=== PATIENT | male | born 1990 | race Caucasian/White ===

== ENCOUNTER 2024-04-08 10:28 | Emergency (ER) | payer OTHER, SELFPAY ==
--- NOTE | ~2024-04-08 | US_ITS ---
US right upper quadrant INDICATION: Right upper quadrant pain PROCEDURE: Realtime right upper abdominal ultrasound. COMPARISON: No prior studies for comparison. FINDINGS: The pancreas is normal without focal mass or pancreatic ductal dilation. Liver echotexture is normal without focal mass or intrahepatic biliary dilatation. There is normal directional flow i n the portal vein. Gallbladder contains echogenic debris, consistent with sludge. There are also gallstones at the gallb ladder neck. Common bile duct measures 7 mm. No sonographic Jacobson's sign. IMPRESSION: 1: Cholelithiasis with gallbladder sludge and mildly dilated common bile duct measuring 7 mm. Conside r cholecystitis in the appropriate clinical setting. Reviewed, dictated and finalized at location B. IMPRESSION: 1: Cholelithiasis with gallbladder sludge and mildly dilated common bile duct m easuring 7 mm. Consider cholecystitis in the appropriate clinical setting.
[2024-04-08 10:31] VITALS: BP 153/100; PULSE 73; RESP 18; TEMP 37.1; O2SAT 100
[2024-04-08 10:52] LABS: Basophils Absolute Auto 0.1 K/mm3 (0.0-0.1); Eosinophils Absolute Auto 0.4 K/mm3 (0-0.3); Eosinophils Percent Auto 4.4 % (0-4.4); Hematocrit 51.9 % (42.0-52.0); Immature Granulocyte Absolute 0.02 K/mm3 (0.00-0.031); Immature Granulocyte Percent A 0.2 % (0-0.5); Lymphocytes Absolute Auto 2.86 K/mm3 (0.9-3.2); Lymphocytes Percent Auto 31.7 % (18.3-44.2); Mean Corpuscular HGB Conc 32.8 g/dl (32-36); Mean Corpuscular Hemoglobin 26.3 pg (26-34); Mean Corpuscular Volume 80.3 fl (80-100); Mean Platelet Volume 9.4 fl (7.4-10.4); Monocytes Absolute Auto 0.8 K/mm3 (0.1-0.6); Monocytes Percent Auto 8.4 % (2.6-8.5); Neutrophils Absolute Auto 4.9 K/mm3 (1.3-6.7); Neutrophils Percent Auto 54.3 % (45.5-73.1); Platelet Count Result 300 k/mm3 (150-375); Red Blood Count 6.46 M/mm3 (4.6-6.20); Red Cell Distribution Width 18.2 % (11.5-14.5)
[2024-04-08 10:54] LABS: Appearance Urine Clear (Clear); Bilirubin Urine Negative (Negative); Blood Urine Negative (Negative); Color Urine Yellow (Yellow); Glucose Urine UA Negative (Negative); Ketones Urine Negative (Negative); Leukocyte Esterase Ur Negative LEU/UL (Negative); Nitrate Urine Negative (Negative); Protein Urine Negative (Negative); Specific Grav Ur 1.025 (1.001-1.035); Urobilinogen Urine 0.2 mg/dL (<2.0); pH Urine 5.5 (5.0-9.0)
[2024-04-08 11:02] LABS: Alanine Aminotransferase 25 U/L (6-50); Albumin Level 4.3 g/dL (3.5-5.1); Alkaline Phosphatase 44 U/L (38-126); Anion Gap 9 mmol/L (4-12); Aspartate Amino Transferase 26 U/L (17-59); Bilirubin,Total 0.7 mg/dL (0.2-1.3); Blood Urea Nitrogen 21 mg/dL (9-20); Calcium 9.2 mg/dL (8.4-10.2); Carbon Dioxide 24 mmol/L (22-30); Chloride 108 mmol/L (98-107); Estimated CRCL calculation 85 ml/min; Estimated Glomerular Filt Rate 55; Glucose 87 mg/dL (65-110); Lipase 187 U/L (23-300); Potassium 3.8 mmol/L (3.4-5.0); Sodium 141 mmol/L (137-145)
[2024-04-08 11:03] LABS: Add Urine Microscopic? NO
--- NOTE | 2024-04-08 12:23 | ED.ABDPAIN ---
HPI - Abdominal Pain General Chief Complaint: Abdominal Pain Stated Complaint: gallbladder issues Time Seen by Provider: 04/08/24 10:32 History of Present Illness HPI narrative: Patient is a 33-year-old male who presents ER with right upper quadrant abdominal pain. Intermittent over the last couple weeks. Worse at night. Feels bloated. Has mild acid reflux symptoms but takes omeprazole and this feels different. Denies fevers or chills or sweats. Unsure of any aggravating factors. Concerned he may have gallstones. Related Data Home Medications Medication Instructions Recorded Confirmed cetirizine 10 mg tablet mg 04/08/24 divalproex 500 mg tablet,delayed mg PO 04/08/24 release fluoxetine 20 mg capsule mg 04/08/24 levothyroxine 50 mcg tablet mcg 04/08/24 omeprazole 20 mg capsule,delayed mg 04/08/24 release quetiapine 100 mg tablet mg 04/08/24 Allergies Allergy/AdvReac Type Severity Reaction Status Date / Time No Known Allergies Allergy Verified 04/08/24 10:40 Review of Systems Review of Systems: All systems reviewed & are unremarkable except as noted in HPI and below Constitutional: Constitutional: Reports no additional constitutional complaints Cardiovascular: Cardiovascular: Reports no additional cardiovascular complaints Respiratory: Respiratory: Reports no additional respiratory complaints Gastrointestinal: Gastrointestinal: Reports abdominal pain, Reports bloating, Denies diarrhea, Denies nausea and Denies vomiting Musculoskeletal: Musculoskeletal: Reports no additional musculoskeletal complaints PMFSH Past Medical History Medical History (Updated 04/08/24 @ 13:17 by Terry Naranjo MD) Depression Surgical History Surgical History (Updated 04/08/24 @ 12:24 by Terry Naranjo MD) History of tracheostomy Exam Narrative: GENERAL: Well-appearing, well-nourished, and in no acute distress. HEAD: Normocephalic, atraumatic. ENT: Mucous membranes moist. CHEST: Clear to auscultation. No respiratory distress. HEART: Regular rate and rhythm. Normal peripheral pulses. ABDOMEN: Soft, nontender, nondistended. EXTREMITIES: Normal range of motion. No edema. SKIN: Warm, dry, no rash. NEURO: Alert and oriented x3. PSYCH: Normal mood and affect. Course Course Emergency Course: Patient informed of results. Discussed case with Dr. Carlisle. Discharge home with supportive care and low-fat diet. Needs follow-up to have his gallbladder removed. Vital Signs Vital signs: Vital Signs Temperature 98.8 F 04/08/24 10:31 Pulse Rate 73 04/08/24 10:31 Respiratory Rate 18 04/08/24 10:31 Blood Pressure 153/100 H 04/08/24 10:31 Pulse Oximetry 100 04/08/24 10:31 Oxygen Delivery Room Air 04/08/24 10:31 Temperature 98.8 F 04/08/24 10:31 Pulse Rate 66 04/08/24 12:39 Respiratory Rate 16 04/08/24 12:39 Blood Pressure 139/86 04/08/24 12:39 Pulse Oximetry 97 04/08/24 12:39 Oxygen Delivery Room Air 04/08/24 10:31 MDM - Abdominal Pain Lab Data 04/08/24 10:44 04/08/24 10:44 Labs: Lab Results 04/08/24 Range/Units 10:44 WBC 9.0 (4.5-10.0) K/mm3 RBC 6.46 H (4.6-6.20) M/mm3 Hgb 17.0 (14.0-18.0) g/dL Hct 51.9 (42.0-52.0) % MCV 80.3 (80-100) fl MCH 26.3 (26-34) pg MCHC 32.8 (32-36) g/dl RDW 18.2 H (11.5-14.5) % Plt Count 300 (150-375) k/mm3 MPV 9.4 (7.4-10.4) fl Immature Gran % (Auto) 0.2 (0-0.5) % Neut % (Auto) 54.3 (45.5-73.1) % Lymph % (Auto) 31.7 (18.3-44.2) % Pitkin % (Auto) 8.4 (2.6-8.5) % Eos % (Auto) 4.4 (0-4.4) % Baso % (Auto) 1.0 (0.2-1.2) % Lymph # (Auto) 2.86 (0.9-3.2) K/mm3 Pitkin # (Auto) 0.8 H (0.1-0.6) K/mm3 Eos # (Auto) 0.4 H (0-0.3) K/mm3 Baso # (Auto) 0.1 (0.0-0.1) K/mm3 Abs Immat Gran (auto) 0.02 (0.00-0.031) K/mm3 Absolute Neuts (auto) 4.9 (1.3-6.7) K/mm3 Absolute Nucleated RBC 0.000 (0.0-0.012) K/mm3 Nucleated RBC %
[2024-04-08 12:39] VITALS: BP 139/86; PULSE 66; RESP 16; O2SAT 97
== END 2024-04-08 13:28 | disposition home or self-care (01) ==
PROVIDERS: Emergency Provider Emergency Medicine; PCP Nurse Practitioner
DX: K80.70 Calculus of gallbladder and bile duct without cholecystitis without obstruction (principal); F32.A Depression, unspecified; Z79.899 Other long term (current) drug therapy
CPT/HCPCS: 36415; 76705; 80053; 81003; 83690; 85025; 99284

== ENCOUNTER 2024-05-11 06:39 | Emergency (ER) | payer OTHER, SELFPAY ==
[2024-05-11 06:47] VITALS: BP 192/106; PULSE 68; RESP 19; TEMP 36.5; O2SAT 99
[2024-05-11 07:00] LABS: Basophils Absolute Auto 0.1 K/mm3 (0.0-0.1); Eosinophils Absolute Auto 0.3 K/mm3 (0-0.3); Eosinophils Percent Auto 3.6 % (0-4.4); Hematocrit 51.7 % (42.0-52.0); Hemoglobin 16.8 g/dL (14.0-18.0); Immature Granulocyte Absolute 0.04 K/mm3 (0.00-0.031); Immature Granulocyte Percent A 0.4 % (0-0.5); Lymphocytes Absolute Auto 3.32 K/mm3 (0.9-3.2); Mean Corpuscular HGB Conc 32.5 g/dl (32-36); Mean Platelet Volume 9.3 fl (7.4-10.4); Monocytes Absolute Auto 0.9 K/mm3 (0.1-0.6); Monocytes Percent Auto 9.2 % (2.6-8.5); Neutrophils Absolute Auto 4.6 K/mm3 (1.3-6.7); Neutrophils Percent Auto 49.8 % (45.5-73.1); Platelet Count Result 306 k/mm3 (150-375); Red Blood Count 6.23 M/mm3 (4.6-6.20); Red Cell Distribution Width 16.3 % (11.5-14.5); White Blood Count 9.2 K/mm3 (4.5-10.0)
[2024-05-11 07:01] LABS: Appearance Urine Clear (Clear); Bilirubin Urine Negative (Negative); Blood Urine Negative (Negative); Color Urine Yellow (Yellow); Glucose Urine UA Negative (Negative); Ketones Urine Trace mg/dL (Negative); Leukocyte Esterase Ur Negative LEU/UL (Negative); Nitrate Urine Negative (Negative); Protein Urine Negative (Negative); Specific Grav Ur 1.025 (1.001-1.035); Urobilinogen Urine 0.2 mg/dL (<2.0); pH Urine 5.5 (5.0-9.0)
[2024-05-11 07:02] LABS: Add Urine Microscopic? NO
--- NOTE | 2024-05-11 07:09 | ED.ABDPAIN ---
HPI - Abdominal Pain General Chief Complaint: Abdominal Pain Stated Complaint: RUQ pain, n/v Time Seen by Provider: 05/11/24 07:01 History of Present Illness HPI narrative: Patient is a 33-year-old male who presents ER with right upper quadrant pain. Consistent with his known gallbladder stones/ sludge. Mild nausea vomiting. No adherence to a low-fat diet. He had followed up with General surgery who was unsure whether his symptoms would return to the opted to avoid surgery. Unfortunately over last 2 days symptoms have recurred. Worse with eating. No fevers or chills or sweats. Related Data Home Medications Medication Instructions Recorded Confirmed cetirizine 10 mg tablet mg 04/08/24 04/22/24 divalproex 500 mg tablet,delayed mg PO 04/08/24 04/22/24 release fluoxetine 20 mg capsule mg 04/08/24 04/22/24 levothyroxine 50 mcg tablet mcg 04/08/24 04/22/24 omeprazole 20 mg capsule,delayed mg 04/08/24 04/22/24 release Allergies Allergy/AdvReac Type Severity Reaction Status Date / Time No Known Allergies Allergy Verified 05/11/24 06:51 Review of Systems Constitutional: Constitutional: Reports no additional constitutional complaints ENT: Reports system reviewed and no additional complaints, except as documented Cardiovascular: Cardiovascular: Reports no additional cardiovascular complaints Respiratory: Respiratory: Reports no additional respiratory complaints Gastrointestinal: Gastrointestinal: Reports abdominal pain, Denies diarrhea, Denies nausea and Denies vomiting PMFSH Past Medical History Medical History (Updated 05/11/24 @ 08:27 by Terry Naranjo MD) Depression History of blood clots Surgical History Surgical History History of tracheostomy Social History Social History (Updated 04/22/24 @ 14:22 by Erika Bradley CMA) Smoking status: Never smoker Alcohol intake: current Do You Feel Safe in your Home?: Yes Lack of Transportation: No Lack of Food: Never True Current Housing: I Have Housing Concerned About Future Housing: No Difficulty Paying Gas/Electric Bills: No Difficulty Paying for Meds: No Currently Unemployed: YES Education: High School Diploma/GED Difficulty w/ Childcare or Family Care: No Exam Narrative: GENERAL: Well-appearing, well-nourished, and in no acute distress. HEAD: Normocephalic, atraumatic. ENT: Mucous membranes moist. CHEST: Clear to auscultation. No respiratory distress. HEART: Regular rate and rhythm. Normal peripheral pulses. ABDOMEN: Soft, nontender, nondistended. EXTREMITIES: Normal range of motion. No edema. SKIN: Warm, dry, no rash. NEURO: Alert and oriented x3. PSYCH: Normal mood and affect. Course Course Emergency Course: No pain at this time. Labs unremarkable. Will give supportive care medications for home, recommend low-fat diet, wound follow back up with surgery to have his gallbladder removed. Vital Signs Vital signs: Vital Signs Temperature 97.7 F 05/11/24 06:47 Pulse Rate 68 05/11/24 06:47 Respiratory Rate 19 05/11/24 06:47 Blood Pressure 192/106 H 05/11/24 06:47 Pulse Oximetry 99 05/11/24 06:47 Oxygen Delivery Room Air 05/11/24 06:47 Temperature 97.7 F 05/11/24 06:47 Pulse Rate 66 05/11/24 07:27 Respiratory Rate 18 05/11/24 07:27 Blood Pressure 155/91 H 05/11/24 07:27 Pulse Oximetry 97 05/11/24 07:27 Oxygen Delivery Room Air 05/11/24 06:47 MDM - Abdominal Pain Lab Data 05/11/24 06:52 05/11/24 06:52 Labs: Lab Results 05/11/24 05/11/24 Range/Units 06:52 06:53 WBC 9.2 (4.5-10.0) K/mm3 RBC 6.23 H (4.6-6.20) M/mm3 Hgb 16.8 (14.0-18.0) g/dL Hct 51.7 (42.0-52.0) % MCV 83.0 (80-100) fl MCH 27.0 (26-34) pg MCHC 32.5 (32-36) g/dl RDW 16.3 H (11.5-14.5) % Plt Count 306 (150-375) k/mm3 MPV 9.3 (7.4-10.4) fl Immatu
[2024-05-11 07:13] LABS: Alanine Aminotransferase 29 U/L (6-50); Albumin Level 4.3 g/dL (3.5-5.1); Alkaline Phosphatase 43 U/L (38-126); Anion Gap 9 mmol/L (4-12); Aspartate Amino Transferase 24 U/L (17-59); Bilirubin,Total 0.5 mg/dL (0.2-1.3); Blood Urea Nitrogen 20 mg/dL (9-20); Calcium 9.2 mg/dL (8.4-10.2); Carbon Dioxide 26 mmol/L (22-30); Chloride 103 mmol/L (98-107); Estimated CRCL calculation 71 ml/min; Estimated Glomerular Filt Rate 44; Glucose 99 mg/dL (65-110); Lipase 111 U/L (23-300); Potassium 4.2 mmol/L (3.4-5.0); Sodium 138 mmol/L (137-145)
[2024-05-11] MEDS: SODIUM CHLORIDE 0.9% IV 1,000 ML 999 ML IV CONT (07:24)
[2024-05-11 07:27] VITALS: BP 155/91; PULSE 66; RESP 18; O2SAT 97
[2024-05-11 08:35] VITALS: BP 142/93; PULSE 79; RESP 16; O2SAT 96
== END 2024-05-11 08:37 | disposition home or self-care (01) ==
PROVIDERS: Emergency Medicine; Emergency Provider Emergency Medicine; PCP Nurse Practitioner
DX: K80.50 Calculus of bile duct without cholangitis or cholecystitis without obstruction (principal); F32.A Depression, unspecified; Z79.899 Other long term (current) drug therapy
CPT/HCPCS: 36415; 80053; 81003; 83690; 85025; 96360; 99283; J7030

== ENCOUNTER 2024-05-21 12:09 | Outpatient (CLI) | payer OTHER, SELFPAY ==
[2024-05-21 12:38] LABS: Amylase 52 U/L (30-110)
== END 2024-05-21 12:10 | disposition home or self-care (01) ==
LOC: ANHLAB 12:10
PROVIDERS: PCP Nurse Practitioner; Referring Provider Anesthesiology; Visit Provider Surgery
DX: K80.20 Calculus of gallbladder without cholecystitis without obstruction (principal); Z01.818 Encounter for other preprocedural examination
CPT/HCPCS: 36415; 82150; 86850; 86900; 86901

== ENCOUNTER 2024-05-22 00:23 | Day surgery (SDC) | payer OTHER, SELFPAY ==
[2024-05-21 11:00] VITALS: BMI 34.6
--- NOTE | 2024-05-21 11:01 | PC.NURSE ---
Report to the Outpatient Waiting Room, entrance under the green pavilion located off [facility], at time _0600_ on date _72-28-1993_. Planned Procedure Time: _0730_. Time changes happen often and if your time is changed the preop area will call you the afternoon before. - You and your visitor will be asked to self-screen and do not enter if you have any COVID symptoms. - A mask is optional within the hospital at this time. Patients may have clear liquids (water, carbonated beverages, clear teas, apple juice) until 3 hours prior to surgery with a maximum of 20 ounces. - No food from midnight until time of surgery Take the following medications with a SIP of water the morning of surgery: ___Divalproex DO NOT STOP ANY OF YOUR OTHER PRESCRIPTION MEDICATIONS PRIOR TO SURGERY ?EXCEPT THE FOLLOWING Medications to discontinue per physician ____None Date to take last dose Please no make-up, nail upper sorbian, hairspray, perfume, deodorant, or body powder the day of surgery. No jewelry (including any body piercings) or valuables the day of surgery, leave them at home. Please take a shower or bath the night before, or the morning of, surgery with an antibacterial soap. Wear comfortable, loose fitting clothing. - Jewelry must be removed prior to entering the operating room. Rings and piercings that are not removed may be cut off. - The hospital will not accept responsibility for valuables. - Please leave all valuables, including medications, at home the day of surgery. If you are going home after surgery, a licensed speedboat driver must drive you home. - NO public transportation without another adult if you receive anesthesia. - We recommend that an adult stay with you for 24 hours following discharge. - We also recommend that you do not drive, make important decision, drink alcoholic beverages, or take any drugs that were not prescribed by your health care provider for at least 24 hours after your discharge time. Follow any additional instructions given to you from your surgeon. If you or anyone in your household have experienced Covid symptoms in the past week, please notify your surgeon or the nurse liaison at the phone number below for possible testing. Telephone instructions given to __Eric__and asked if any additional questions and then verbalized understanding. Patient advised to call surgeon office or pre surgery nurse liaison [phone] if any additional questions.
[2024-05-22] VITALS (9 sets, daily range): BP systolic 95–139; BP diastolic 55–100; PULSE 69–89; RESP 12–18; TEMP 36.1–36.6; O2SAT 98–100
--- NOTE | 2024-05-22 07:09 | WPDANESEPPF ---
Anes - Initial Pre Proc Eval Procedure: Operation Date: 05/22/24 07:30 Proposed Procedures p Robotic Laparoscopic Cholecystectomy, Posible Open - Tyron Heredia MD Date/Time: 05/22/24 07:09 Surgeon: Tyron Heredia MD Pre Op Diagnosis: biliary colic Patient Data Age: 33 Gender: M Height: 1.83 m Weight: 115.9 kg Allergies Allergy/AdvReac Type Severity Reaction Status Date / Time No Known Allergies Allergy Verified 05/22/24 06:50 Home Medications Medication Instructions Recorded Confirmed Type cetirizine 10 mg tablet 10 mg PO DAILY 04/08/24 05/22/24 History divalproex 500 mg tablet,delayed 500 mg PO BID 04/08/24 05/22/24 History release fluoxetine 20 mg capsule 20 mg PO HS 04/08/24 05/22/24 History levothyroxine 50 mcg tablet 50 mcg PO HS 04/08/24 05/22/24 History omeprazole 20 mg capsule,delayed 20 mg PO HS 04/08/24 05/22/24 History release hydrocodone 5 mg-acetaminophen 325 1 tablet PO Q6H PRN pain #12 tabs 05/11/24 05/22/24 Rx mg tablet ondansetron 4 mg disintegrating 4 mg PO Q6H PRN nausea and 05/11/24 05/22/24 Rx tablet vomiting #10 tabs Patient hx anesthesia problems: none Family hx anesthesia problems: none Results Review: All pre-operative results and documents have been reviewed as part of the pre-operative evaluation. [facility] Past Medical History Medical History Depression History of blood clots Surgical History Surgical History History of tracheostomy Social History Social History Smoking status: Never smoker Alcohol intake: current Do You Feel Safe in your Home?: Yes Lack of Transportation: No Lack of Food: Never True Current Housing: I Have Housing Concerned About Future Housing: No Difficulty Paying Gas/Electric Bills: No Difficulty Paying for Meds: No Currently Unemployed: YES Education: High School Diploma/GED Difficulty w/ Childcare or Family Care: No Living arrangements: with family Spiritual care concerns: No Anes - Eval Final PreProcedure Day of Procedure 05/22/24 07:09 Patient weight: obese Heart: regular rate and rhythm Lungs: clear to auscultation Airway: Mallampati scale class II and special considerations (Prev trach scar noted to neck. ) Neurological: alert and oriented Last oral intake: >/= 8 hours ASA classification: III Emergent: no Anesthetic plan: proceed Anesthesia type and monitoring: general ETT and standard monitoring Results Review: All pre-operative results and documents have been reviewed as part of the pre-operative evaluation. ALINA, noncompliant w CPAP. Hypothyroidism. Prev suicide attempt approx 2022 w ingestion of multiple psychiatric meds, question of depression of GFR subsequently, pt unaware (GFR 44). Informed Consent: The patient's anesthetic plan and its attendant risks and benefits were discussed with the patient/family/POA. Questions were solicited and answers provided to the satisfaction of the patient/family/POA.
[2024-05-22] MEDS: LACTATED RINGERS 1,000 ML 30 ML IV CONT ×2 (07:10→08:58)
[2024-05-22] MEDS: INDOCYANINE GREEN 25 MG VIAL WITH DILUENT 3.75 MG IV PUSH (07:11)
[2024-05-22] MEDS: KETOROLAC 15 MG/ML VIAL (*BKC) IV PUSH (07:14)
[2024-05-22] MEDS: ACETAMINOPHEN 500 MG TABLET 1000 MG PO (07:16)
--- NOTE | 2024-05-22 07:21 | WPDHPUPDATE1 ---
History and Physical Update Update Date/Time: 05/22/24 07:21 History and Physical has been reviewed, including an updated exam of the patient. There are NO changes in the patient's condition. Risks, benefits, and alternatives have been discussed and questions answered. Patient agrees to proceed with procedure. Will proceed with robotic assisted laparoscopic cholecystectomy, possible open today. Risks, benefits, indications, and expected outcomes were discussed with the patient and/or family members. Specific risks to include bleeding and possible need for blood transfusion, infection, bile leak, injury to other organs, common bile duct injury, and conversion to open cholecystectomy has been discussed. I have answered all their questions and they agreed to proceed with surgery as outlined above.
[2024-05-22 07:26] LABS: Amylase 54 U/L (30-110)
[2024-05-22] MEDS: ceFAZolin 2 GM/D5W 50 ML 2 GM/50 ML BAG IVPB (07:28)
[2024-05-22] MEDS: BUPivacaine HCL 0.5% 10 ML AMP 30 ML INFILTRATE (08:39)
[2024-05-22] MEDS: LIDO 1%/EPINEPHRINE 1:100,000 50 ML VIAL 30 ML INFILTRATE (08:39)
--- NOTE | 2024-05-22 09:05 | W.PM.PROC2 ---
Procedure Note - Detailed Date of Procedure 05/22/24 Pre-op Diagnosis Biliary colic secondary to gallstones and gallbladder sludge Post-op Diagnosis Other (Chronic cholecystitis secondary to cholelithiasis and gallbladder sludge) Procedure Performed Robotic assisted laparoscopic cholecystectomy Surgeon Tyron Heredia MD Anesthesia General Indications Patient is a 33-year-old white male who initially had in the right upper quadrant abdominal pain and nausea associated with eating. He underwent workup had abdominal ultrasound performed which showed gallstones bladder sludge. He then did not have any symptoms for several months and when he presented to my office for evaluation he was asymptomatic so he deferred any surgical management. Last week he went to the emergency room another episode of right upper quadrant abdominal pain. Again gallbladder sludge and gallstones were seen but no acute cholecystitis. He presents now for elective robotic assisted laparoscopic cholecystectomy due to his biliary colic and gallstones and gallbladder sludge. Findings Patient had some minimal thickening of the gallbladder wall. Fairly large almost 2cm gallstone was palpated. Lots of gallbladder sludge was also noted in the gallbladder. No evidence of acute cholecystitis. Description of Procedure After informed consent was obtained patient brought to the operating room was placed supine position and general endotracheal anesthesia was administered. The abdomen was then prepped and draped usual sterile fashion. Time-out was then performed correctly identifying the patient as well as procedure to be performed. He was given perioperative IV antibiotics. I 1st entered the abdomen left upper quadrant lies in a 5mm Optiview port. Once inside the abdomen insufflated to adequate pneumoperitoneum of 15mmHg of CO2. I then placed additional robotic trocar ports across the mid and right sides of the abdomen. The Sung robot was then brought to the patient's bedside and docked to the patient and the robotic arms were attached robotic ports. Under direct visualization the robotic instruments were then advanced into the abdomen. I then scrubbed out the procedure sent down at the robotic console to perform dissection. Robotic grasper was then used to hold the gallbladder at the dome. The gallbladder was lifted over the right half of the liver towards the right shoulder. A 2nd grasper used to hold the gallbladder at the infundibulum. Then utilizing robotic hook cautery I proceeded dissect the visceral peritoneum off of the infundibulum of the gallbladder until I identified the cystic duct. The cystic duct was then dissected out circumferentially. The cystic artery was identified and was dissected out circumferentially as well. The patient was injected with ICG prior to surgery and so the firefly was used to confirm the biliary anatomy. I then continued the dissection the lower 3rd of the gallbladder off of the liver into I had the critical view. I then placed 2 clips proximally cystic duct and 1 clip distally high on infundibular gallbladder. The cystic duct was then divided with robotic hook cautery on pure cut. Similarly the cystic artery was clipped and then divided with robotic with robotic hook. The gallbladder was then resected off the liver utilized electrocautery. There was no spillage of bile or gallstones. The 5mm left upper quadrant trocar port was upsized to a 10mm trocar port and a Endo-Catch bag was brought in through that port site and the gallbladder was placed into the Endo-Catch bag. It was brought out through the port site and then passed off the table sent to pathology. A single large gallstone was palpated. I then did examine the right upper quadrant and the liver bed. There is no evidence of bile leak. Hemostasis was good. Clips were in good position on the cystic artery the duct and stump. I then removed all the trocar ports under direct visualization. Hemo
== END 2024-05-22 11:10 | disposition home or self-care (01) ==
PROVIDERS: PCP Nurse Practitioner; Visit Provider Surgery
PROC: 0FT44ZZ Resection of Gallbladder, Percutaneous Endoscopic Approach (ICD-10-PCS; CPT 47562; principal; 2024-05-22 07:30)
DX: K80.10 Calculus of gallbladder with chronic cholecystitis without obstruction (principal); F32.A Depression, unspecified; E66.9 Obesity, unspecified; Z68.34 Body mass index [BMI] 34.0-34.9, adult
CPT/HCPCS: 47562; S2900; 36415; 82150; 88304; A9270; J0690; J1100; J1885; J2250; J2405; J2704; J3010; J7120